=== PATIENT | female | born 1995 | race Caucasian/White ===

== ENCOUNTER 2024-02-23 04:16 | Inpatient (IN) ==
[2024-02-23] MEDS ORDERED: OXYTOCIN 30 UNITS/NSS 30 UNITS/500 ML BAG IV PRN ×2 (07:59→17:51)
[2024-02-23] MEDS ORDERED: LIDOCAINE 1% LOCAL 20 ML VIAL INFIL PRN (07:59)
[2024-02-23] MEDS: LACTATED RINGER'S 1,000 ML IV PRN (08:11)
[2024-02-23 08:59] LABS: Hematocrit (blood only) 39.4 % (37.0-47.0); Hemoglobin 13.6 g/dl (12.0-16.0); Mean Corpuscular Hemoglobin 32.3 pg (25.0-34.0); Mean Corpuscular Hgb Conc 34.5 g/dL (32.0-36.0); Mean Corpuscular Volume 93.6 fL (80.0-100.0); Platelet Count 150 K/uL (130-400); RDW Coefficient of Variation 12.3 % (11.5-14.5); RDW Standard Deviation 42.4 fL (36.4-46.3); Red Blood Count 4.21 M/uL (4.20-5.40); White Blood Count 10.22 K/ul (4.8-10.8)
--- NOTE | 2024-02-23 08:59 | History & Physical Report ---
Date of Service February 23, 2024 Assessment & Plan (1) Uterine contractions at greater than 20 weeks of gestation: Plan: 28-year-old G1, P0 at 40 weeks and 3 days of gestation presenting today with contractions and cervical change, Vital signs stable afebrile, heart rate reassuring, GBS positive, Plan to admit, monitor, labs, penicillin for GBS and epidural per patient request, Discussed what to expect during labor, possible augmentation with oxytocin per protocol, All questions were answered. (2) Post-term , 40-42 weeks of gestation: History of Present Illness Primary Care Provider: Cole Mello DO Patient is a 28-year-old G1, P0 at 40 weeks and 3 days of gestation who was admitted this morning with regular contractions and cervical change. She denies leakage of fluid or vaginal bleeding. She reports good movements. Her has been uncomplicated except GBS positive. she denies medical problems, surgeries, medications, allergies, and history of STDs, no history of genital herpes, chlamydia, gonorrhea. Allergies Allergy/AdvReac Type Severity Reaction Status Date / Time No Known Allergies Allergy Verified 02/23/24 04:42 Home Medications Medication Instructions Recorded Confirmed Type prenat.vits,anaya,[id number]-[id number] 1 tab PO DAILY 10/28/23 02/23/24 History magnesium 1 tab PO DAILY 02/22/24 02/23/24 History Patient History Medical History Achalasia Heller Myotomy Surgical History S/P balloon dilatation of esophageal stricture every 6-10 years PRN Social History Smoking Status: Never smoker Second Hand Exposure: No; Do You Dip or Chew Tobacco: No; Hx Alcohol Use: No Hx Substance Use: No Preferred Language: Sinhala Communication Ability: Effective Garbage Collection Supervisor Required: No Beliefs That Will Affect Care: None marital status: Current Living Situation: Spouse Current Living Situation Comment: [place] Other Information That Helps Us Care for You: No Feels Safe at Home: Yes Safety Concerns: Feels Safe At This Time Assistive Devices: None Review of Systems as per Subjective / HPI Physical Exam Constitutional: WD/WN, vitals as above Gastrointestinal (Abdomen): normal bowel sounds, soft, nontender, no hepatosplenomegaly ( gravid) Genitourinary: normal external appearance OB Exam Abdomen: + vertex Manual OB Exam: + cervical dilation 3 cm, + cervical effacement 70% and + station -1 ( per Dr. Baker) OB Exam Monitor Tracing: + external uterine monitor used and + category I Results & Data Vital Signs (Past 12 Hours) Vital Signs Temp Pulse Resp BP 02/23/24 07:07 36.8 C 78 24 123/73 02/23/24 04:43 36.7 C 02/23/24 04:39 20 02/23/24 04:39 36.7 C 73 20 128/86
[2024-02-23] MEDS ORDERED: fentaNYL citrate PF 100 MCG/2 ML VIAL EPI PRN (09:16)
[2024-02-23] MEDS ORDERED: ePHEDrine sulfate 50 MG/ML AMP IV PRN (09:16)
[2024-02-23] MEDS ORDERED: NALBUPHINE HCL 5 MG in SYRINGE 0 ML IV PRN (09:16)
[2024-02-23] MEDS ORDERED: ROPIVACAINE 0.5% PF 5 MG/ML 20 ML VIAL EPI PRN (09:16)
[2024-02-23] MEDS ORDERED: SODIUM CHLORIDE 0.9% PF INJ 10 ML VIAL EPI PRN (09:16)
[2024-02-23] MEDS ORDERED: NALOXONE HCL 0.4 MG/1 ML VIAL/CARP IV PRN (09:16)
[2024-02-23] MEDS ORDERED: BUPIVACAINE 0.25% PF 30 ML VIAL EPI PRN (09:16)
[2024-02-23] MEDS ORDERED: NALOXONE HCL 1 MG in SODIUM CHLORIDE 0.9% 1,000 ML IV PRN (09:16)
[2024-02-23] MEDS ORDERED: diphenhydrAMINE 50 MG/ML VIAL IV PRN (09:16)
[2024-02-23] MEDS ORDERED: fentANYL 2 MCG/ML BUPIVacaine 0.125%-NSS 100ML BAG EPI PRN (09:16)
[2024-02-23] MEDS ORDERED: LIDOCAINE 2% MPF LOCAL 5 ML VIAL EPI PRN (09:16)
[2024-02-23] MEDS ORDERED: ONDANSETRON INJ 2 MG/ML 2 ML VIAL IV PRN (09:16)
--- NOTE | 2024-02-23 09:19 | Anesthesiology Consultation ---
Date of Service February 23, 2024 Assessment & Plan (1) Encounter for pre-operative examination: Chart Review Chart Review: Patient NOT seen in Pre Admission Testing and Acceptable Risk for Labor Epidural Consults Requested none History Height/Weight Height: 5 ft 6 in Weight: 94.347 kg Allergies Allergy/AdvReac Type Severity Reaction Status Date / Time No Known Allergies Allergy Verified 02/23/24 04:42 Medications Home Medications Medication Instructions Recorded Confirmed Last Taken prenat.vits,anaya,pcr-izpc-tafmx 1 tab PO DAILY 10/28/23 02/23/24 02/22/24 magnesium 1 tab PO DAILY 02/22/24 02/23/24 02/22/24 Active Medications Generic Name Dose Route Start Last Admin Trade Name Freq PRN Reason Stop Dose Admin Lactated Ringer's 1,000 mls @ 125 mls/hr 02/23/24 07:59 02/23/24 08:42 Lr IV 02/25/24 07:58 125 mls/hr .Q8H PRN Infusion L&D Protocol Protocol Past Medical History Medical History (Updated 02/23/24 @ 09:18 by Humphrey Ng MD) Encounter for pre-operative examination Achalasia Heller Myotomy Exercise / Class Metabolic Activity II 4-5 Yardwork/Stairs/Walk up hill Past Surgical History Surgical History S/P balloon dilatation of esophageal stricture every 6-10 years PRN Social History Smoking Status: Never smoker Do You Dip or Chew Tobacco: No Hx Alcohol Use: No Hx Substance Use: No substance use type: does not use Physical Exam Vital Signs Last Vital Signs Temp 36.8 C 02/23/24 07:07 Pulse 81 02/23/24 09:38 Resp 24 02/23/24 07:07 BP 119/83 02/23/24 09:38 Pulse Ox 97 02/23/24 09:38 Testing Laboratory Results 02/23/24 08:24
[2024-02-23] MEDS: fentaNYL citrate PF 100 MCG/2 ML VIAL ONE (09:32)
[2024-02-23] MEDS: BUPIVACAINE 0.25% PF 30 ML VIAL ONE (09:32)
[2024-02-23] MEDS: fentANYL 2 MCG/ML BUPIVacaine 0.125%-NSS 100ML BAG ONE (09:32)
[2024-02-23] MEDS: LIDOCAINE 2%/EPINEPHRINE 1:200,000 20 ML PF ONE (09:44)
[2024-02-23] MEDS: PENICILLIN GK 6 MU in DEXTROSE 5% 250 ML IV STA (10:00)
[2024-02-23] MEDS: OXYTOCIN 30 UNITS/NSS 30 UNITS/500 ML BAG IV PRN (11:27)
[2024-02-23] MEDS: BUTORPHANOL TARTRATE 2 MG/ML VIAL IV ONE (13:34)
[2024-02-23] MEDS: ePHEDrine sulfate 50 MG/ML AMP ONE (13:34)
[2024-02-23] MEDS: fentaNYL citrate PF 100 MCG/2 ML VIAL EPI STA (13:35)
[2024-02-23] MEDS: LIDOCAINE 2%/EPINEPHRINE 1:200,000 20 ML PF EPI STA (13:35)
[2024-02-23] MEDS: BUPIVACAINE 0.25% PF 30 ML VIAL EPI STA (13:35)
[2024-02-23] MEDS: SODIUM CHLORIDE 0.9% PF INJ 10 ML VIAL ONE (13:35)
[2024-02-23] MEDS: SODIUM CHLORIDE 0.9% PF INJ 10 ML VIAL EPI STA (13:35)
[2024-02-23] MEDS: PENICILLIN GK 3 MU in DEXTROSE 5% 100 ML IV SCH (13:55)
--- NOTE | 2024-02-23 14:44 | Obstetrical Progress Note ---
Date of Service February 23, 2024 Subjective Patient is reevaluated. She felt leaking and thinks her water broke. She is comfortable, received epidural for pain. VE: 6/ 70%/ -1, blood show, minimal leaking FHR categ I Place Rose cathter Continue to monitor Results & Data Vital Signs (Past 12 Hours) Vital Signs Temp Pulse Resp BP Pulse Ox 02/23/24 14:38 80 95 02/23/24 14:36 76 111/56 L 02/23/24 14:33 74 97 02/23/24 14:32 71 94 02/23/24 14:28 65 97 02/23/24 14:23 73 96 02/23/24 14:22 66 105/57 L 02/23/24 14:18 74 97 02/23/24 14:13 80 97 02/23/24 14:08 74 97 02/23/24 14:05 82 120/78 02/23/24 14:03 83 97 02/23/24 13:58 83 97 02/23/24 13:53 91 H 97 02/23/24 13:51 77 119/77 02/23/24 13:48 81 95 02/23/24 13:43 88 96 02/23/24 13:38 82 94 02/23/24 13:36 76 120/70 02/23/24 13:33 75 95 02/23/24 13:28 76 96 02/23/24 13:23 69 96 02/23/24 13:20 80 111/63 02/23/24 13:19 72 94 02/23/24 13:18 75 96 02/23/24 13:13 75 97 02/23/24 13:08 72 96 02/23/24 13:07 77 91 02/23/24 13:05 69 112/64 02/23/24 13:03 70 96 02/23/24 13:01 73 94 02/23/24 12:58 78 95 02/23/24 12:53 78 95 02/23/24 12:51 75 117/71 02/23/24 12:48 78 96 02/23/24 12:43 69 97 02/23/24 12:38 72 96 02/23/24 12:37 76 131/63 02/23/24 12:33 78 96 02/23/24 12:28 80 96 02/23/24 12:23 77 97 02/23/24 12:22 82 113/72 02/23/24 12:18 75 97 02/23/24 12:13 78 97 02/23/24 12:08 81 96 02/23/24 12:06 72 97/52 L 02/23/24 12:05 75 94 02/23/24 12:03 68 96 02/23/24 11:58 68 97 02/23/24 11:55 73 94 02/23/24 11:53 74 96 02/23/24 11:50 78 100/56 L 02/23/24 11:48 79 94 02/23/24 11:43 69 96 02/23/24 11:38 70 98 02/23/24 11:35 92 02/23/24 11:35 75 02/23/24 11:35 64 102/63 02/23/24 11:33 74 97 02/23/24 11:29 81 122/83 02/23/24 11:28 79 97 02/23/24 11:24 85 120/72 02/23/24 11:23 79 98 02/23/24 11:19 93 H 99/64 L 02/23/24 11:18 108 H 97 02/23/24 11:14 78 120/74 02/23/24 11:13 77 97 02/23/24 11:11 73 94 02/23/24 11:08 107 H 102/68 97 02/23/24 11:03 71 02/23/24 11:03 69 135/77 98 02/23/24 10:58 18 02/23/24 10:58 36.9 C 18 02/23/24 10:58 113 H 02/23/24 10:58 105 H 102/65 97 02/23/24 10:53 69 127/77 93 02/23/24 10:52 75 94 02/23/24 10:48 98 H 101/65 97 02/23/24 10:44 65 123/74 94 02/23/24 10:43 85 95 02/23/24 10:38 86 106/68 97 02/23/24 10:34 71 94 02/23/24 10:33 104 H 93/58 L 97 02/23/24 10:29 78 94 02/23/24 10:28 61 02/23/24 10:28 64 119/69 97 02/23/24 10:23 106 H 97/57 L 97 02/23/24 10:19 74 93 02/23/24 10:18 109 H 92/59 L 97 02/23/24 10:13 65 118/74 96 02/23/24 10:08 90 108/69 97 02/23/24 10:05 80 139/74 02/23/24 10:03 87 95 02/23/24 09:58 79 95 02/23/24 09:57 81 02/23/24 09:57 94 H 112/68 93 02/23/24 09:55 89 110/72 02/23/24 09:53 60 02/23/24 09:53 70 116/71 96 02/23/24 09:51 86 118/75 94 02/23/24 09:49 94 H 106/63 02/23/24 09:48 91 H 96 02/23/24 09:47 81 112/76 02/23/24 09:45 81 119/73 02/23/24 09:43 83 109/66 97 02/23/24 09:41 76 117/68 02/23/24 09:39 85 116/78 02/23/24 09:38 81 119/83 97 02/23/24 09:34 90 114/67 02/23/24 09:33 96 H 97 02/23/24 09:28 100 H 98 02/23/24 09:23 86 96 02/23/24 09:18 83 96 02/23/24 09:13 82 98 02/23/24 09:08 84 97 02/23/24 07:07 36.8 C 78 24 123/73 02/23/24 04:43 36.7 C 02/23/24 04:39 20 02/23/24 04:39 36.7 C 73 20 128/86
--- NOTE | 2024-02-23 16:01 | Obstetrical Progress Note ---
Date of Service February 23, 2024 Subjective Patient is fully dilated at +2 station, started to push abut 10 minutes ago FHR categ I Continue to monitor closely. Results & Data Vital Signs (Past 12 Hours) Vital Signs Temp Pulse Resp BP Pulse Ox 02/23/24 15:58 114 H 97 02/23/24 15:55 98 H 94 02/23/24 15:53 113 H 98 02/23/24 15:50 87 135/91 02/23/24 15:48 102 H 96 02/23/24 15:47 92 H 94 02/23/24 15:43 94 H 98 02/23/24 15:38 83 96 02/23/24 15:37 91 H 132/87 02/23/24 15:35 88 94 02/23/24 15:33 87 96 02/23/24 15:28 83 98 02/23/24 15:23 80 97 02/23/24 15:22 80 129/82 02/23/24 15:18 81 96 02/23/24 15:13 84 97 02/23/24 15:08 77 96 02/23/24 15:06 76 124/72 02/23/24 15:03 84 97 02/23/24 14:58 82 98 02/23/24 14:53 83 96 02/23/24 14:51 78 122/80 02/23/24 14:50 89 94 02/23/24 14:48 83 95 02/23/24 14:43 75 97 02/23/24 14:38 80 95 02/23/24 14:36 37.0 C 76 20 111/56 L 97 02/23/24 14:33 74 97 02/23/24 14:32 71 94 02/23/24 14:28 65 97 02/23/24 14:23 73 96 02/23/24 14:22 66 105/57 L 02/23/24 14:18 74 97 02/23/24 14:13 80 97 02/23/24 14:08 74 97 02/23/24 14:05 82 120/78 02/23/24 14:03 83 97 02/23/24 13:58 83 97 02/23/24 13:53 91 H 97 02/23/24 13:51 77 119/77 02/23/24 13:48 81 95 02/23/24 13:43 88 96 02/23/24 13:38 82 94 02/23/24 13:36 76 120/70 02/23/24 13:33 75 95 02/23/24 13:28 76 96 02/23/24 13:23 69 96 02/23/24 13:20 80 111/63 02/23/24 13:19 72 94 02/23/24 13:18 75 96 02/23/24 13:13 75 97 02/23/24 13:08 72 96 02/23/24 13:07 77 91 02/23/24 13:05 69 112/64 02/23/24 13:03 70 96 02/23/24 13:01 73 94 02/23/24 12:58 78 95 02/23/24 12:53 78 95 02/23/24 12:51 75 117/71 02/23/24 12:48 78 96 02/23/24 12:43 69 97 02/23/24 12:38 72 96 02/23/24 12:37 76 131/63 02/23/24 12:33 78 96 02/23/24 12:28 80 96 02/23/24 12:23 77 97 02/23/24 12:22 82 113/72 02/23/24 12:18 75 97 02/23/24 12:13 78 97 02/23/24 12:08 81 96 02/23/24 12:06 72 97/52 L 02/23/24 12:05 75 94 02/23/24 12:03 68 96 02/23/24 11:58 68 97 02/23/24 11:55 73 94 02/23/24 11:53 74 96 02/23/24 11:50 78 100/56 L 02/23/24 11:48 79 94 02/23/24 11:43 69 96 02/23/24 11:38 70 98 02/23/24 11:35 92 02/23/24 11:35 75 02/23/24 11:35 64 102/63 02/23/24 11:33 74 97 02/23/24 11:29 81 122/83 02/23/24 11:28 79 97 02/23/24 11:24 85 120/72 02/23/24 11:23 79 98 02/23/24 11:19 93 H 99/64 L 02/23/24 11:18 108 H 97 02/23/24 11:14 78 120/74 02/23/24 11:13 77 97 02/23/24 11:11 73 94 02/23/24 11:08 107 H 102/68 97 02/23/24 11:03 71 02/23/24 11:03 69 135/77 98 02/23/24 10:58 18 02/23/24 10:58 36.9 C 18 02/23/24 10:58 113 H 02/23/24 10:58 105 H 102/65 97 02/23/24 10:53 69 127/77 93 02/23/24 10:52 75 94 02/23/24 10:48 98 H 101/65 97 02/23/24 10:44 65 123/74 94 02/23/24 10:43 85 95 02/23/24 10:38 86 106/68 97 02/23/24 10:34 71 94 02/23/24 10:33 104 H 93/58 L 97 02/23/24 10:29 78 94 02/23/24 10:28 61 02/23/24 10:28 64 119/69 97 02/23/24 10:23 106 H 97/57 L 97 02/23/24 10:19 74 93 02/23/24 10:18 109 H 92/59 L 97 02/23/24 10:13 65 118/74 96 02/23/24 10:08 90 108/69 97 02/23/24 10:05 80 139/74 02/23/24 10:03 87 95 02/23/24 09:58 79 95 02/23/24 09:57 81 02/23/24 09:57 94 H 112/68 93 02/23/24 09:55 89 110/72 02/23/24 09:53 60 02/23/24 09:53 70 116/71 96 02/23/24 09:51 86 118/75 94 02/23/24 09:49 94 H 106/63 02/23/24 09:48 91 H 96 02/23/24 09:47 81 112/76 02/23/24 09:45 81 119/73 02/23/24 09:43 83 109/66 97 02/23/24 09:41 76 117/68 02/23/24 09:39 85 116/78 02/23/24 09:38 81 119/83 97 02/23/24 09:34 90 114/67 02/23/24 09:33 96 H 97 02/23/24 09:28 100 H 98 02/23/24 09:23 86 96 02/23/24 09:18 83 96 02/23/24 09:13 82 98 02/23/24 09:08 84 97 02/23/24 07:07 36.8 C 78 24 123/73 02/23/24 04:43 36.7 C 02/23/24 04:39 20 02/23/24 04:39 36.7 C 73 20 128/86
[2024-02-23] MEDS: MINERAL OIL 30 ML UDC ONE (16:15)
[2024-02-23] MEDS: TRANEXAMIC ACID / 0.7% NACL 1000MG/100ML BAG IV ONE (16:30)
[2024-02-23] MEDS ORDERED: HYDROCORTISONE ACETATE 25 MG SUPP PR PRN (17:51)
[2024-02-23] MEDS ORDERED: bisacodyL 10 MG SUPP PR PRN (17:51)
--- NOTE | 2024-02-23 18:01 | Delivery Summary ---
Vaginal Delivery Summary Date of Service February 23, 2024 Vaginal Delivery Summary Patient was found to be fully dilated and desires to push. She pushed for about 40 min and the head was over tight perineal skin and FHR was having bradycardia, small 1 cm right mediolateral incision was made on labia skin and then delivered the head right after and then shoulders with minimal traction. Nuchal cordx1 reduced. The baby was handed off to the mother. The cord was clampedx2 and cut. The vagina and perineum were checked and found to have 2nd degree laceration at the incision site as well as on left lower vaginal wall which had a vessel pumping. It was held with Hemostat and sutured with 2-0 Vicryl for hemostasis. Rectal exam was done and noted good sphincter tone. The gloves were changes. The vaginal mucosa on the left side laceration was repaired with 2/0 vicryl with multiple sutures and it was still oozing. And the vagina mucosa on the right side laceration was repaired with 2-0 Vicryl those were continued in the middle where the perineal body muscles were sutured in a continuous fashion and the skin in a subcuticular fashion. The placenta was delivered spontaneously as intact and complete. The uterus was explored and found to be empty. There was still oozing on the repair sites bilaterally. More sutures were placed with 2-0 Vicryl and active bleeding was controlled. Then the decision was made to cover repair area with hemostatic powder and pack with two of the 4 x 4 sponges. A Rose catheter was placed to drain the bladder. QBL was 1229 ml. The fundus was firm The baby was a viable male , Apgars 8/9, the weight is 4170 gr. The mother and the baby tolerated the procedure well. Vital signs were stable and afebrile during whole procedure. Mom was given 1000 g of tranexamic acid during repair and will be started on IV antibiotics and Methergine series for 24 hours. No complications happened and I was present during whole procedure.
[2024-02-23] MEDS ORDERED: MAGNESIUM HYDROXIDE SUSP 30 ML UDC PO PRN (18:03)
--- NOTE | 2024-02-23 18:03 | Anesthesia Procedure Note ---
Date of Service February 23, 2024 Anesthesia Post Epidural Note Vital Signs Vital Signs: Temp Pulse Resp BP Pulse Ox 37.4 C 95 H 18 119/75 97 02/23/24 16:05 02/23/24 17:58 02/23/24 17:05 02/23/24 17:50 02/23/24 17:58 Pain Intensity Lower Medial Abdomen: Pain Intensity: 0 Notes Mental Status: alert / awake / arousable and participated in evaluation Patient Amnestic to Procedure: No Nausea / Vomiting: adequately controlled Pain: adequately controlled Airway Patency, RR, SpO2: stable & adequate BP & HR: stable & adequate Hydration State: stable & adequate Neuraxial Anesthesia: was administered and sensory block is resolving Anesthetic Complications: no major complications apparent and Pt Satisfied with anesthetic care Epidural: Removed without complications and With tip intact
[2024-02-23] MEDS: METHYLERGONOVINE MALEATE 0.2 MG/ML AMP ONE (18:04)
[2024-02-23] MEDS: DIPHTHER/TETAN/PERTUS Vaccine (Tdap, Adol/Adult) 0.5mL IM ONE (18:06)
[2024-02-23] MEDS: IBUPROFEN 600 MG TAB PO PRN (18:15)
[2024-02-23] MEDS: ceFAZolin 2000MG 2,000 MG/15 ML SYR IV SCH (18:29)
[2024-02-23 18:34] LABS: Basophils # (auto) 0.03 K/uL (0.00-0.20); Basophils % (auto) 0.2 %; Eosinophils # (auto) 0.02 K/uL (0.00-0.50); Eosinophils % (auto) 0.1 %; Hematocrit (blood only) 36.5 % (37.0-47.0); Hemoglobin 12.5 g/dl (12.0-16.0); Immature Granulocytes # (auto) 0.09 K/uL (0.01-0.20); Immature Granulocytes % (auto) 0.6 %; Lymphocytes # (auto) 1.41 K/uL (1.20-3.40); Lymphocytes % (auto) 9.6 %; Mean Corpuscular Hemoglobin 32.8 pg (25.0-34.0); Mean Corpuscular Hgb Conc 34.2 g/dL (32.0-36.0); Mean Corpuscular Volume 95.8 fL (80.0-100.0); Mean Platelet Volume 11.1 fL (9.4-12.4); Monocytes # (auto) 0.94 K/uL (0.11-0.59); Monocytes % (auto) 6.4 %; Neutrophils # (auto) 12.15 K/uL (1.40-6.50); Neutrophils % (auto) 83.1 %; Platelet Count 151 K/uL (130-400); RDW Coefficient of Variation 12.5 % (11.5-14.5); RDW Standard Deviation 43.7 fL (36.4-46.3); Red Blood Count 3.81 M/uL (4.20-5.40); White Blood Count 14.64 K/ul (4.8-10.8)
[2024-02-23 19:16] LABS: Fibrinogen 347 mg/dl (184-400); INR 0.9 (0.9-1.1); Partial Thromboplastin Time 27 Seconds (21-31); Prothrombin Time 10.3 Seconds (9.0-12.0)
[2024-02-23] MEDS: METHYLERGONOVINE MALEATE 0.2 MG/ML AMP IM ONE ×2 (19:17→19:18)
[2024-02-23] MEDS: METHYLERGONOVINE MALEATE 0.2 MG TAB PO SCH (20:08)
[2024-02-23] MEDS: BENZOCAINE 20% SPRY 85 APPLN/85 GM CAN EXT PRN (20:08)
[2024-02-24 06:17] LABS: Hemoglobin 11.6 g/dl (12.0-16.0); Mean Corpuscular Hgb Conc 35.2 g/dL (32.0-36.0); Mean Corpuscular Volume 93.8 fL (80.0-100.0); Mean Platelet Volume 10.9 fL (9.4-12.4); Platelet Count 141 K/uL (130-400); RDW Coefficient of Variation 12.4 % (11.5-14.5); RDW Standard Deviation 42.9 fL (36.4-46.3); Red Blood Count 3.52 M/uL (4.20-5.40); White Blood Count 15.43 K/ul (4.8-10.8)
[2024-02-24] MEDS: DOCUSATE SODIUM 100 MG CAP PO SCH (07:37)
[2024-02-24] MEDS: PRENATAL VITAMIN 1 TAB PO SCH (07:39)
[2024-02-24] MEDS: FERROUS SULFATE 325 MG TAB PO SCH (07:40)
--- NOTE | 2024-02-24 08:32 | Obstetrical Progress Note ---
Date of Service February 24, 2024 Assessment & Plan (1) Normal course: PPD #1 Pt doing well Vaginal gauze x2 removed Good hemostasis Results & Data Vital Signs (Past 12 Hours) Vital Signs Temp Pulse Resp BP Pulse Ox O2 Del Method 02/24/24 04:15 36.7 C 83 16 98/65 L 97 Room Air 02/24/24 00:30 36.9 C 94 H 16 106/68 98 Room Air 02/23/24 21:23 36.8 C 87 16 102/65 Room Air
[2024-02-24] MEDS: ACETAMINOPHEN 325 MG TAB PO PRN (09:44)
[2024-02-24] MEDS: oxyCODONE/ACETAMINOPHEN 5mg/325mg TAB PO PRN (10:44)
[2024-02-24] MEDS ORDERED: Nursing to Pharmacy Communication SCH (15:00)
[2024-02-24] MEDS: bisacodyL 5 MG TABEC PO SCH (20:34)
[2024-02-25 01:09] VITALS: O2SAT 98
[2024-02-25 06:31] LABS: Hematocrit (blood only) 33.6 % (37.0-47.0); Hemoglobin 11.4 g/dl (12.0-16.0)
[2024-02-25 09:45] VITALS: BP 115/79; PULSE 68; RESP 16; TEMP 97.7
--- NOTE | 2024-02-25 10:25 | Discharge Summary ---
Date of Service February 25, 2024 Admission HPI Per Admitting Provider Patient is a 28-year-old G1, P0 at 40 weeks and 3 days of gestation who was admitted this morning with regular contractions and cervical change. She denies leakage of fluid or vaginal bleeding. She reports good movements. Her has been uncomplicated except GBS positive. she denies medical problems, surgeries, medications, allergies, and history of STDs, no history of genital herpes, chlamydia, gonorrhea.
--- NOTE | 2024-02-25 10:25 | Obstetrical Progress Note ---
Date of Service February 25, 2024 Assessment & Plan Admission and Anticipated Discharge Date Admission Date: February 23, 2024 OB Progress Note abdomen soft and non tender no calf tenderness ambulating well vaginal bleeding scant hgb 11.4 recent left sided calf tenderness will order dvt Results & Data Vital Signs (Past 12 Hours) Vital Signs Temp Pulse Resp BP Pulse Ox O2 Del Method 02/25/24 08:55 36.5 C 68 16 115/79 Room Air 02/24/24 23:50 36.7 C 71 18 100/62 98 Room Air
--- NOTE | 2024-02-25 11:47 | Ultrasound Report ---
BILATERAL LOWER EXTREMITY VENOUS DOPPLER CLINICAL HISTORY: DVT symptoms COMPARISON STUDY: No previous studies for comparison. TECHNIQUE: Sonography of the deep venous system of the bilateral lower extremities was performed. Co mpression and augmentation were evaluated. FINDINGS: The bilateral common femoral, superficial femoral and popliteal veins were compressible. A ugmentation was normal. Flow was shown within the deep calf vessels. IMPRESSION: No evidence of deep venous thrombus within the bilateral lower extremities. ACT 112: Negative or not required by law. Electronically signed by: Errol Sanchez M.D. 02/25/2024 11:46 AM
== END 2024-02-25 14:08 | disposition home or self-care (01) | DRG 807 ==
LOC: OPB 04:16 → 4S1 04:25 → 4E2 20:56